=== PATIENT | female | born 1980 | race Caucasian/White ===

== ENCOUNTER 2022-12-12 01:59 | Emergency (ER) | payer SELFPAY ==
[~2022-12-12] VITALS: Ht 167.6 cm; Wt 90.0 kg
[2022-12-12 02:04] VITALS: BP 113/74
== END 2022-12-12 02:25 ==
LOC: ER 02:01
DX: F15.10 Other stimulant abuse, uncomplicated (principal)
CPT/HCPCS: 99283

== ENCOUNTER 2024-01-29 01:35 | Emergency (ER) | payer MEDICARE, MEDICAID ==
[~2024-01-29] VITALS: Ht 167.6 cm; Wt 68.2 kg
[2024-01-29 01:57] VITALS: BP 120/74; PULSE 97; RESP 18; TEMP 98.5; O2SAT 98
[2024-01-29] MEDS: ibuprofen tablet 400 MG TABLET PO ONE (02:55)
== END 2024-01-29 02:59 | disposition home or self-care (01) ==
LOC: ER 01:36
DX: G89.29 Other chronic pain (principal); M79.671 Pain in right foot; M79.672 Pain in left foot; F15.90 Other stimulant use, unspecified, uncomplicated
CPT/HCPCS: 99282

== ENCOUNTER 2024-04-03 15:16 | Emergency (ER) | payer MEDICARE, MEDICAID ==
[~2024-04-03] VITALS: Ht 157.5 cm; Wt 70.0 kg
[~2024-04-03 15:16] MED LIST: IRON150C13 PO; NICO-687 TD; NICO-687 TOP; OLAN-1 PO; OLAN5TAB75 PO; PALI156D IM; PANT40TA54 PO
[2024-04-03 18:40] VITALS: BP 115/73; PULSE 68; RESP 18; TEMP 98.1; O2SAT 100
== END 2024-04-03 18:45 | disposition home or self-care (01) ==
LOC: ER 15:16
DX: S09.90XA Unspecified injury of head, initial encounter (principal); F15.90 Other stimulant use, unspecified, uncomplicated; F11.99 Opioid use, unspecified with unspecified opioid-induced disorder; Z91.030 Bee allergy status; Z79.899 Other long term (current) drug therapy; X58.XXXA Exposure to other specified factors, initial encounter; Y93.89 Activity, other specified; Y92.89 Other specified places as the place of occurrence of the external cause; Y99.8 Other external cause status
CPT/HCPCS: 70450; 99284

== ENCOUNTER 2025-07-02 09:42 | Emergency (ER) | payer MEDICARE, MEDICAID ==
[~2025-07-02] VITALS: Ht 170.2 cm; Wt 70.8 kg
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
[2025-07-02 10:35] LABS: MEAN PLATELET VOLUME 9.0 FL (7.4-10.4); RED CELL DISTRIBUTION WIDTH 13.9 % (11.5-14.5)
[2025-07-02 10:38] VITALS: TEMP 97.8
[2025-07-02 10:42] LABS: CREATININE 1.53 MG/DL (0.40-0.90); TOTAL CARBON DIOXIDE 20.2 MMOL/L (24-32); eCRCL 46 ML/MIN; eGFR 37 ML/MIN
[2025-07-02] MEDS: normal saline 1000ML IV soln IVB ONE (11:04)
[2025-07-02] MEDS: acetaminophen 1,000mg/100ml IV 100 ML IV ONE (11:04)
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
[2025-07-02 11:45] LABS: URINE HCG NEGATIVE (NEG)
[2025-07-02 11:46] LABS: LEUKOCYTE ESTERASE ,URINE NEGATIVE (Neg); NITRITES, URINE NEGATIVE (Neg); OCCULT BLOOD,URINE LARGE (Neg)
[2025-07-02 11:47] LABS: UA COLLECTION TYPE VOIDED
[2025-07-02 12:04] LABS: HYALINE CASTS 0-3 /LPF (NEGATIVE); SQUAMOUS EPITHELIAL CELL,UR MANY /LPF (FEW)
[2025-07-02 12:12] LABS: RENAL CELLS, URINE MODERATE /HPF
[2025-07-02 12:25] VITALS: BP 122/87; PULSE 92; RESP 16; O2SAT 98
== END 2025-07-02 12:29 | disposition short-term general hospital (02) ==
LOC: ER 09:42 → EEVIPCON 09:42 → ER 12:29
DX: T76.21XA Adult sexual abuse, suspected, initial encounter (principal); E86.0 Dehydration; N17.9 Acute kidney failure, unspecified; Z91.030 Bee allergy status; X58.XXXA Exposure to other specified factors, initial encounter; Y93.89 Activity, other specified; Y92.89 Other specified places as the place of occurrence of the external cause; Y99.8 Other external cause status
CPT/HCPCS: 36415; 70496; 70498; 80048; 81001; 81025; 85025; 96361; 96374; 99285; J0131; J7030; Q9967

== ENCOUNTER 2025-08-09 19:17 | Emergency (ER) | payer MEDICARE, MEDICAID ==
[2025-08-09 19:17] VITALS: RESP 21
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
== END 2025-08-09 19:42 | disposition home or self-care (01) ==
LOC: ER 19:18
DX: F15.159 Other stimulant abuse with stimulant-induced psychotic disorder, unspecified (principal); Z91.030 Bee allergy status; Z79.899 Other long term (current) drug therapy
CPT/HCPCS: 99282

== ENCOUNTER 2025-08-12 16:22 | Emergency (ER) | payer MEDICARE, MEDICAID ==
[~2025-08-12] VITALS: Ht 172.7 cm; Wt 72.7 kg
[2025-08-12 16:36] VITALS: BP 146/90; PULSE 91; RESP 18; TEMP 97.8; O2SAT 98
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
== END 2025-08-12 17:06 | disposition home or self-care (01) ==
LOC: ER 16:23
DX: F15.959 Other stimulant use, unspecified with stimulant-induced psychotic disorder, unspecified (principal); Z91.030 Bee allergy status; Z79.899 Other long term (current) drug therapy
CPT/HCPCS: 99282

== ENCOUNTER 2025-08-13 10:41 | Emergency (ER) | payer MEDICARE, MEDICAID ==
[~2025-08-13] VITALS: Ht 167.6 cm; Wt 63.6 kg
--- NOTE | 2025-08-13 10:47 | Physician Documentation ---
History of Present Illness ~ General Stated Complaint: MED CLEARANCE Time Seen by MD: 10:42 History of Present Illness Initial Comments THIS 44-YEAR-OLD FEMALE WHO WAS SEEN HERE YESTERDAY RETURNS VIA [employer] FOR MEDICAL CLEARANCE. PD STATES THAT THE PATIENT INITIALLY SINCE SHE SWALLOWED DRUGS WHICH REQUIRES MEDICAL EVALUATION FOR HOWEVER IN ROUTE TO THE HOSPITAL SHE KNOWS SHE DID NOT FOLLOW DRUGS AND JUST DID NOT WANT TO GO TO ASSISTED. PATIENT IS BEHAVING TO HER BASELINE FROM HER PREVIOUS VISITS. Medication Reconciliation Allergies: Coded Allergies: bee venom protein (honey bee) (Verified Allergy, Unknown, 08/12/25) Scheduled Iron Polysaccharide Complex (Poly-Iron), 150 MG PO BID Iron Polysaccharide Complex (Poly-Iron), 150 MG PO BID, (Reported) Nicotine 21 MG Patch* (Habitrol 21 MG Patch*), 1 PATCH TD DAILY Nicotine 21 MG Patch* (Habitrol 21 MG Patch*), 1 PATCH TOP DAILY, (Reported) Olanzapine (ZyPREXA ZYDIS tablet), 5 MG PO BID, (Reported) Paliperidone Palmitate (Invega Sustenna), 1 SYR IM Q30D Paliperidone Palmitate (Invega Sustenna), 1 SYR IM Q30D, (Reported) Pantoprazole Sodium (Pantoprazole Sodium), 40 MG PO BKF Pantoprazole Sodium (Pantoprazole Sodium), 40 MG PO BKF, (Reported) Scheduled PRN Olanzapine (Olanzapine), 5 MG PO BID PRN for AUDIO HALLUCINATION Past Medical History Past Medical History: *PSYCH* Past Surgical History: noncontributory Patient History: FH: bipolar disorder FH: diabetes mellitus MOTHER, Age: 64 Schizophrenia Drug Use: methamphetamine Lives In: Home Physical Exam Physical Exam Physical Exam General: Alert, no apparent distress. Respiratory: Lungs clear, no respiratory distress. Chest: No accessory muscle use. Cardiovascular: Regular rate and rhythm, no murmurs. Gastrointestinal: Soft, nontender, nondistended. Bowels sounds present. Neurologic: Oriented x4. Psychiatric: BIZARRE Skin: Normal color, warm and dry. No edema, no ecchymosis. Progress Results/Orders Results/Orders Orders - [employer]IO [employer] CONSULTANT Abdomen,Single View(Kub) (08/13/25 10:42) Completed Orders - [employer]SULT[employer] Abdomen,Single View(Kub) (08/13/25 10:42) Vital Signs 08/13/25 10:49 Pulse 104 Resp 18 B/P (MAP) 126/81 Pulse Ox 98 O2 Flow Rate 0 Medical Decision Making Additional information obtaine: N/A Findings I AM GOING TO REQUEST A KUB I DO NOT HAVE A HIGH SUSPICION FOR DRUG INGESTION OUTSIDE OF WHAT SHE ALREADY AND TAKES ON A DAILY BASIS FOR UNLESS I SEE ANY SIGNS OF OBSTRUCTION OR FOREIGN BODY I AM GOING TO DISCHARGE HER AND MEDICALLY CLEAR HER FOR ASSISTED Differential Diagnosis d Departure Disposition: HOME / SELF CARE / HOMELESS Impression: Primary Impression: Methamphetamine use disorder, moderate Discharge Instructions: Methamphetamines Use Disorder Additional Instructions: PATIENT EVALUATED FOR FOREIGN BODY, NO EVIDENCE THERE OF. MEDICALLY CLEARING THIS PATIENT FOR ASSISTED Referrals: NO PRIMARY CARE PROVIDER (PCP) Education Educated: Patient Signature Scribe Signature: G Attestation: Scribed for Claudio Fragoso Spectral Scientist by Claudio Fragoso - JAXON . 08/13/25 10:45 [employer] Aug 13, 2025 10:47
[2025-08-13 10:49] VITALS: BP 126/81; PULSE 104; RESP 18; O2SAT 98
--- NOTE | 2025-08-13 11:36 | RADIOLOGY REPORT ---
Exam: DI ABDOMEN,SINGLE VIEW(KUB) Indication: fb Comparison: None Technique: 2 radiographic views of the abdomen. Findings: Nonobstructive bowel gas pattern noted. There is no definite evidence for pneumoperitoneum. Multiple surgical coils are present in the right hemiabdomen and pelvis. Moderate volume colonic stool. Impression: No definite radiopaque foreign body is identified.
== END 2025-08-13 11:45 | disposition home or self-care (01) ==
LOC: ER 10:42
DX: F15.20 Other stimulant dependence, uncomplicated (principal); Z91.030 Bee allergy status
CPT/HCPCS: 74018; 99283